=== PATIENT | female | born 1955 | race Caucasian/White ===

== ENCOUNTER 2016-07-02 10:10 | Outpatient (CLI) | payer MEDICARE | END 2016-07-02 23:59 | disposition home health service (06) | LOC: WOU 10:10 | PROVIDERS: ATTEND Podiatrist Foot & Ankle Surgery | DX: I87.332 Chronic venous hypertension (idiopathic) with ulcer and inflammation of left lower extremity (principal); L97.821 Non-pressure chronic ulcer of other part of left lower leg limited to breakdown of skin; S81.832S Puncture wound without foreign body, left lower leg, sequela; W26.8XXS Contact with other sharp object(s), not elsewhere classified, sequela; M79.7 Fibromyalgia; I25.2 Old myocardial infarction; I10 Essential (primary) hypertension; B36.9 Superficial mycosis, unspecified; E66.9 Obesity, unspecified; Z68.41 Body mass index [BMI] 40.0-44.9, adult; G89.29 Other chronic pain | CPT/HCPCS: 15271; A6402; G0463; Q4131; A6207 ==

== ENCOUNTER 2016-07-09 09:03 | Outpatient (CLI) | payer MEDICARE | END 2016-07-09 23:59 | disposition home or self-care (01) | LOC: WOU 09:03 | PROVIDERS: ATTEND Podiatrist Foot & Ankle Surgery | DX: I83.228 Varicose veins of left lower extremity with both ulcer of other part of lower extremity and inflammation (principal); M79.7 Fibromyalgia; E66.9 Obesity, unspecified; Z68.41 Body mass index [BMI] 40.0-44.9, adult; L97.821 Non-pressure chronic ulcer of other part of left lower leg limited to breakdown of skin; Z87.828 Personal history of other (healed) physical injury and trauma; I83.893 Varicose veins of bilateral lower extremities with other complications; I25.2 Old myocardial infarction; L29.9 Pruritus, unspecified; L20.9 Atopic dermatitis, unspecified; B36.9 Superficial mycosis, unspecified; G89.29 Other chronic pain; I10 Essential (primary) hypertension | CPT/HCPCS: 15271; A6402; G0463 ==

== ENCOUNTER 2016-07-16 14:05 | Outpatient (CLI) | payer MEDICARE | END 2016-07-16 23:59 | disposition home or self-care (01) | LOC: WOU 14:05 | PROVIDERS: ATTEND Podiatrist Foot & Ankle Surgery | DX: I87.332 Chronic venous hypertension (idiopathic) with ulcer and inflammation of left lower extremity (principal); L97.821 Non-pressure chronic ulcer of other part of left lower leg limited to breakdown of skin; E66.9 Obesity, unspecified; Z68.41 Body mass index [BMI] 40.0-44.9, adult; M79.7 Fibromyalgia; L30.4 Erythema intertrigo; L20.9 Atopic dermatitis, unspecified | CPT/HCPCS: 15271; A6402; Q4131 ==

== ENCOUNTER 2016-07-23 08:15 | Outpatient (CLI) | payer MEDICARE | END 2016-07-23 23:59 | disposition home or self-care (01) | LOC: WOU 08:15 | PROVIDERS: ATTEND Podiatrist Foot & Ankle Surgery | DX: I83.228 Varicose veins of left lower extremity with both ulcer of other part of lower extremity and inflammation (principal); L97.821 Non-pressure chronic ulcer of other part of left lower leg limited to breakdown of skin; E66.9 Obesity, unspecified; Z68.41 Body mass index [BMI] 40.0-44.9, adult; M79.7 Fibromyalgia; L29.9 Pruritus, unspecified; L30.4 Erythema intertrigo; L20.9 Atopic dermatitis, unspecified | CPT/HCPCS: 15271; A6402 ==

== ENCOUNTER 2016-07-30 10:03 | Outpatient (CLI) | payer MEDICARE | END 2016-07-30 23:59 | disposition home or self-care (01) | LOC: WOU 10:03 | PROVIDERS: ATTEND Podiatrist Foot & Ankle Surgery | DX: I83.228 Varicose veins of left lower extremity with both ulcer of other part of lower extremity and inflammation (principal); L97.821 Non-pressure chronic ulcer of other part of left lower leg limited to breakdown of skin; I83.893 Varicose veins of bilateral lower extremities with other complications; Z87.828 Personal history of other (healed) physical injury and trauma; I25.2 Old myocardial infarction; I10 Essential (primary) hypertension; M79.7 Fibromyalgia; E32.9 Disease of thymus, unspecified; Z79.899 Other long term (current) drug therapy; Z83.3 Family history of diabetes mellitus; Z82.49 Family history of ischemic heart disease and other diseases of the circulatory system | CPT/HCPCS: A6402; G0463 ==

== ENCOUNTER 2016-08-06 10:00 | Outpatient (CLI) | payer MEDICARE | END 2016-08-06 23:59 | disposition home or self-care (01) | LOC: WOU 10:00 | PROVIDERS: ATTEND Podiatrist Foot & Ankle Surgery | DX: I83.228 Varicose veins of left lower extremity with both ulcer of other part of lower extremity and inflammation (principal); L97.829 Non-pressure chronic ulcer of other part of left lower leg with unspecified severity; E66.9 Obesity, unspecified; Z68.41 Body mass index [BMI] 40.0-44.9, adult; I25.2 Old myocardial infarction; M79.7 Fibromyalgia; Z83.3 Family history of diabetes mellitus; Z82.49 Family history of ischemic heart disease and other diseases of the circulatory system; I83.893 Varicose veins of bilateral lower extremities with other complications | CPT/HCPCS: A6402; G0463 ==

== ENCOUNTER 2016-09-07 09:08 | Outpatient (CLI) | payer MEDICARE | END 2016-09-07 23:59 | disposition home or self-care (01) | LOC: WOU 09:08 | PROVIDERS: ATTEND Podiatrist Foot & Ankle Surgery | DX: I83.893 Varicose veins of bilateral lower extremities with other complications (principal); I10 Essential (primary) hypertension; M79.7 Fibromyalgia; I25.2 Old myocardial infarction; L20.9 Atopic dermatitis, unspecified; L30.4 Erythema intertrigo; L29.9 Pruritus, unspecified; E66.9 Obesity, unspecified; Z68.41 Body mass index [BMI] 40.0-44.9, adult; I83.819 Varicose veins of unspecified lower extremity with pain | CPT/HCPCS: G0463 ==

== ENCOUNTER 2016-10-05 11:55 | Outpatient (CLI) | payer MEDICARE | END 2016-10-05 23:59 | disposition home or self-care (01) | LOC: WOU 11:55 | PROVIDERS: ATTEND Surgery | DX: S61.452A Open bite of left hand, initial encounter (principal); W55.01XA Bitten by cat, initial encounter; Y92.89 Other specified places as the place of occurrence of the external cause; I25.2 Old myocardial infarction; I10 Essential (primary) hypertension; M79.7 Fibromyalgia; E07.9 Disorder of thyroid, unspecified; I25.10 Atherosclerotic heart disease of native coronary artery without angina pectoris; F32.9 Major depressive disorder, single episode, unspecified | CPT/HCPCS: A6207; A6402; G0463 ==

== ENCOUNTER 2016-10-12 12:10 | Outpatient (CLI) | payer MEDICARE | END 2016-10-12 23:59 | disposition home or self-care (01) | LOC: WOU 12:10 | PROVIDERS: ATTEND Surgery | DX: S61.452D Open bite of left hand, subsequent encounter (principal); W55.01XD Bitten by cat, subsequent encounter; I25.2 Old myocardial infarction; I10 Essential (primary) hypertension; M79.7 Fibromyalgia; E07.9 Disorder of thyroid, unspecified; I25.10 Atherosclerotic heart disease of native coronary artery without angina pectoris; F32.9 Major depressive disorder, single episode, unspecified | CPT/HCPCS: G0463 ==

== ENCOUNTER 2016-10-26 10:53 | Outpatient (CLI) | payer MEDICARE | END 2016-10-26 23:55 | disposition home or self-care (01) | LOC: WOU 10:53 | PROVIDERS: ATTEND Surgery | DX: S61.452D Open bite of left hand, subsequent encounter (principal); W55.01XD Bitten by cat, subsequent encounter; M79.7 Fibromyalgia; E07.9 Disorder of thyroid, unspecified; F32.9 Major depressive disorder, single episode, unspecified; I25.2 Old myocardial infarction; I25.10 Atherosclerotic heart disease of native coronary artery without angina pectoris; I10 Essential (primary) hypertension | CPT/HCPCS: G0463 ==

== ENCOUNTER 2017-01-25 11:15 | Outpatient (CLI) | payer MEDICARE | END 2017-01-25 23:59 | disposition home or self-care (01) | LOC: WOU 11:15 | PROVIDERS: ATTEND Surgery | DX: S61.452D Open bite of left hand, subsequent encounter (principal); L30.4 Erythema intertrigo; W55.01XD Bitten by cat, subsequent encounter; M79.7 Fibromyalgia; E07.9 Disorder of thyroid, unspecified; F32.9 Major depressive disorder, single episode, unspecified; I25.2 Old myocardial infarction; I25.10 Atherosclerotic heart disease of native coronary artery without angina pectoris; I10 Essential (primary) hypertension; M25.642 Stiffness of left hand, not elsewhere classified | CPT/HCPCS: G0463 ==

== ENCOUNTER 2017-03-11 12:00 | Outpatient (CLI) | payer MEDICARE | END 2017-03-11 23:59 | disposition home or self-care (01) | LOC: WOU 12:00 | PROVIDERS: ATTEND Surgery | DX: S61.452D Open bite of left hand, subsequent encounter (principal); L30.4 Erythema intertrigo; W55.01XD Bitten by cat, subsequent encounter; M79.7 Fibromyalgia; E07.9 Disorder of thyroid, unspecified; F32.9 Major depressive disorder, single episode, unspecified; I25.2 Old myocardial infarction; I25.10 Atherosclerotic heart disease of native coronary artery without angina pectoris; I10 Essential (primary) hypertension; M25.642 Stiffness of left hand, not elsewhere classified | CPT/HCPCS: G0463 ==

== ENCOUNTER 2017-04-09 09:50 | Outpatient (CLI) | payer MEDICARE | END 2017-04-09 23:59 | disposition home or self-care (01) | LOC: WOU 09:50 | PROVIDERS: ATTEND Podiatrist Foot & Ankle Surgery | DX: S80.811A Abrasion, right lower leg, initial encounter (principal); L03.115 Cellulitis of right lower limb; W20.8XXA Other cause of strike by thrown, projected or falling object, initial encounter; Y92.89 Other specified places as the place of occurrence of the external cause; E66.9 Obesity, unspecified; Z68.41 Body mass index [BMI] 40.0-44.9, adult; Z71.3 Dietary counseling and surveillance | CPT/HCPCS: A6402; G0463 ==

== ENCOUNTER 2017-04-15 11:55 | Outpatient (CLI) | payer MEDICARE | END 2017-04-15 23:59 | disposition home or self-care (01) | LOC: WOU 11:55 | PROVIDERS: ATTEND Podiatrist Foot & Ankle Surgery | DX: L03.116 Cellulitis of left lower limb (principal); L03.115 Cellulitis of right lower limb; S80.811D Abrasion, right lower leg, subsequent encounter; W18.09XD Striking against other object with subsequent fall, subsequent encounter; E66.9 Obesity, unspecified; Z68.41 Body mass index [BMI] 40.0-44.9, adult; I25.2 Old myocardial infarction | CPT/HCPCS: A6402; G0463 ==

== ENCOUNTER 2017-04-19 11:34 | Outpatient (CLI) | payer MEDICARE | END 2017-04-19 23:59 | disposition home or self-care (01) | LOC: WOU 11:34 | PROVIDERS: ATTEND Podiatrist Foot & Ankle Surgery | DX: S80.811A Abrasion, right lower leg, initial encounter (principal); W18.09XA Striking against other object with subsequent fall, initial encounter; L03.116 Cellulitis of left lower limb; L03.115 Cellulitis of right lower limb; E66.9 Obesity, unspecified; Z68.41 Body mass index [BMI] 40.0-44.9, adult; I25.2 Old myocardial infarction; M79.661 Pain in right lower leg | CPT/HCPCS: 11042; A6402 ==

== ENCOUNTER 2017-04-22 12:55 | Outpatient (CLI) | payer MEDICARE | END 2017-04-22 23:59 | disposition home or self-care (01) | LOC: WOU 12:55 | PROVIDERS: ATTEND Surgery | DX: S61.052D Open bite of left thumb without damage to nail, subsequent encounter (principal); W55.01XD Bitten by cat, subsequent encounter; M79.7 Fibromyalgia; F32.9 Major depressive disorder, single episode, unspecified; E07.9 Disorder of thyroid, unspecified; I25.10 Atherosclerotic heart disease of native coronary artery without angina pectoris; I11.9 Hypertensive heart disease without heart failure | CPT/HCPCS: G0463 ==

== ENCOUNTER 2017-04-26 10:55 | Outpatient (CLI) | payer MEDICARE | END 2017-04-26 23:59 | disposition home or self-care (01) | LOC: WOU 10:55 | PROVIDERS: ATTEND Podiatrist Foot & Ankle Surgery | DX: S80.811A Abrasion, right lower leg, initial encounter (principal); M79.7 Fibromyalgia; W18.09XA Striking against other object with subsequent fall, initial encounter; E66.9 Obesity, unspecified; Z68.41 Body mass index [BMI] 40.0-44.9, adult; I25.2 Old myocardial infarction; M79.661 Pain in right lower leg; I96 Gangrene, not elsewhere classified | CPT/HCPCS: 11042; A6402 ==

== ENCOUNTER 2017-05-06 12:42 | Outpatient (CLI) | payer MEDICARE | END 2017-05-06 23:59 | disposition home or self-care (01) | LOC: WOU 12:42 | PROVIDERS: ATTEND Surgery | DX: L30.4 Erythema intertrigo (principal); E66.9 Obesity, unspecified; Z68.41 Body mass index [BMI] 40.0-44.9, adult; S80.811D Abrasion, right lower leg, subsequent encounter; W01.118D Fall on same level from slipping, tripping and stumbling with subsequent striking against other sharp object, subsequent encounter | CPT/HCPCS: G0463 ==

== ENCOUNTER 2018-06-30 13:10 | Outpatient (CLI) | payer MEDICARE | END 2018-06-30 23:59 | disposition home or self-care (01) | LOC: WOU 13:10 | PROVIDERS: ATTEND Podiatrist Foot & Ankle Surgery | DX: S81.812A Laceration without foreign body, left lower leg, initial encounter (principal); L03.116 Cellulitis of left lower limb; W22.8XXA Striking against or struck by other objects, initial encounter; Y92.89 Other specified places as the place of occurrence of the external cause; M79.7 Fibromyalgia; I25.2 Old myocardial infarction; M79.662 Pain in left lower leg; I10 Essential (primary) hypertension; Z79.899 Other long term (current) drug therapy | CPT/HCPCS: 11042; A6402 ==

== ENCOUNTER 2018-07-07 10:17 | Outpatient (CLI) | payer MEDICARE | END 2018-07-07 23:59 | disposition home or self-care (01) | LOC: WOU 10:17 | PROVIDERS: ATTEND Podiatrist Foot & Ankle Surgery | DX: S81.812A Laceration without foreign body, left lower leg, initial encounter (principal); W22.03XA Walked into furniture, initial encounter; Y92.89 Other specified places as the place of occurrence of the external cause; L03.116 Cellulitis of left lower limb; M79.662 Pain in left lower leg; M79.7 Fibromyalgia; I10 Essential (primary) hypertension; I25.2 Old myocardial infarction; E07.9 Disorder of thyroid, unspecified; Z79.899 Other long term (current) drug therapy | CPT/HCPCS: 11042; Z7610 ==

== ENCOUNTER 2018-07-14 10:48 | Outpatient (CLI) | payer MEDICARE | END 2018-07-14 23:59 | disposition home or self-care (01) | LOC: WOU 10:48 | PROVIDERS: ATTEND Podiatrist Foot & Ankle Surgery | DX: S81.812A Laceration without foreign body, left lower leg, initial encounter (principal); W22.8XXA Striking against or struck by other objects, initial encounter; Y92.89 Other specified places as the place of occurrence of the external cause; M79.7 Fibromyalgia; I10 Essential (primary) hypertension; I25.2 Old myocardial infarction; Z79.899 Other long term (current) drug therapy; E07.9 Disorder of thyroid, unspecified; M79.662 Pain in left lower leg | CPT/HCPCS: 11042; A6402 ==

== ENCOUNTER 2018-07-21 10:52 | Outpatient (CLI) | payer MEDICARE | END 2018-07-21 23:59 | disposition home or self-care (01) | LOC: WOU 10:52 | PROVIDERS: ATTEND Podiatrist Foot & Ankle Surgery | DX: S81.812A Laceration without foreign body, left lower leg, initial encounter (principal); W22.8XXA Striking against or struck by other objects, initial encounter; Y92.89 Other specified places as the place of occurrence of the external cause; M79.7 Fibromyalgia; I10 Essential (primary) hypertension; I25.2 Old myocardial infarction; E07.9 Disorder of thyroid, unspecified; Z91.041 Radiographic dye allergy status; Z79.899 Other long term (current) drug therapy | CPT/HCPCS: 11042; A6402 ==

== ENCOUNTER 2018-08-04 11:06 | Outpatient (CLI) | payer MEDICARE | END 2018-08-04 23:59 | disposition home or self-care (01) | LOC: WOU 11:06 | PROVIDERS: ATTEND Podiatrist Foot & Ankle Surgery | DX: S81.812A Laceration without foreign body, left lower leg, initial encounter (principal); W22.8XXA Striking against or struck by other objects, initial encounter; Y92.89 Other specified places as the place of occurrence of the external cause; M79.662 Pain in left lower leg; M79.7 Fibromyalgia; I25.2 Old myocardial infarction; I10 Essential (primary) hypertension; Z79.899 Other long term (current) drug therapy | CPT/HCPCS: 11042; A6402 ==

== ENCOUNTER 2018-08-18 10:50 | Outpatient (CLI) | payer MEDICARE | END 2018-08-18 23:59 | disposition home or self-care (01) | LOC: WOU 10:50 | PROVIDERS: ATTEND Podiatrist Foot & Ankle Surgery | DX: S81.812D Laceration without foreign body, left lower leg, subsequent encounter (principal); W22.8XXD Striking against or struck by other objects, subsequent encounter; M79.7 Fibromyalgia; I10 Essential (primary) hypertension; I25.2 Old myocardial infarction; M79.662 Pain in left lower leg; Z79.899 Other long term (current) drug therapy; E07.9 Disorder of thyroid, unspecified | CPT/HCPCS: G0463 ==

== ENCOUNTER 2018-09-08 13:53 | Outpatient (CLI) | payer MEDICARE | END 2018-09-08 23:59 | disposition home or self-care (01) | LOC: WOU 13:53 | PROVIDERS: ATTEND Podiatrist Foot & Ankle Surgery | PROC: 0HQLXZZ Repair Left Lower Leg Skin, External Approach (ICD-10-PCS; principal; 2018-09-08) | DX: S81.812A Laceration without foreign body, left lower leg, initial encounter (principal); W22.03XA Walked into furniture, initial encounter; Y93.89 Activity, other specified; Y92.019 Unspecified place in single-family (private) house as the place of occurrence of the external cause; M79.7 Fibromyalgia; I25.2 Old myocardial infarction; I10 Essential (primary) hypertension; E07.9 Disorder of thyroid, unspecified | CPT/HCPCS: 12001; A6402; J3490 ==

== ENCOUNTER 2018-09-15 13:18 | Outpatient (CLI) | payer MEDICARE | END 2018-09-15 23:59 | disposition home or self-care (01) | LOC: WOU 13:18 | PROVIDERS: ATTEND Podiatrist Foot & Ankle Surgery | DX: S81.812D Laceration without foreign body, left lower leg, subsequent encounter (principal); W22.03XD Walked into furniture, subsequent encounter; M79.7 Fibromyalgia; I25.2 Old myocardial infarction; E07.9 Disorder of thyroid, unspecified | CPT/HCPCS: A6402; G0463 ==

== ENCOUNTER 2018-09-22 11:00 | Outpatient (CLI) | payer MEDICARE | END 2018-09-22 23:59 | disposition home or self-care (01) | LOC: WOU 11:00 | PROVIDERS: ATTEND Podiatrist Foot & Ankle Surgery | DX: S81.812D Laceration without foreign body, left lower leg, subsequent encounter (principal); W22.03XD Walked into furniture, subsequent encounter; M79.7 Fibromyalgia; I25.2 Old myocardial infarction; I10 Essential (primary) hypertension | CPT/HCPCS: G0463 ==

== ENCOUNTER 2019-02-20 10:00 | Outpatient (CLI) | payer MEDICARE | END 2019-02-20 23:59 | disposition home or self-care (01) | LOC: WOU 10:00 | PROVIDERS: ATTEND Podiatrist Foot & Ankle Surgery | DX: S81.811D Laceration without foreign body, right lower leg, subsequent encounter (principal); W22.8XXD Striking against or struck by other objects, subsequent encounter; M79.7 Fibromyalgia; M79.661 Pain in right lower leg | CPT/HCPCS: G0463 ==

== ENCOUNTER 2019-03-02 12:00 | Outpatient (CLI) | payer MEDICARE | END 2019-03-02 23:59 | disposition home or self-care (01) | LOC: WOU 12:00 | PROVIDERS: ATTEND Podiatrist Foot & Ankle Surgery | DX: S81.811D Laceration without foreign body, right lower leg, subsequent encounter (principal); W22.8XXD Striking against or struck by other objects, subsequent encounter; M79.7 Fibromyalgia; M79.661 Pain in right lower leg; I10 Essential (primary) hypertension; E07.9 Disorder of thyroid, unspecified | CPT/HCPCS: G0463 ==

== ENCOUNTER 2019-03-09 12:30 | Outpatient (CLI) | payer MEDICARE | END 2019-03-09 23:59 | disposition home or self-care (01) | LOC: WOU 12:30 | PROVIDERS: ATTEND Podiatrist Foot & Ankle Surgery | DX: S81.811A Laceration without foreign body, right lower leg, initial encounter (principal); W22.8XXA Striking against or struck by other objects, initial encounter; Y92.89 Other specified places as the place of occurrence of the external cause; M79.7 Fibromyalgia; I10 Essential (primary) hypertension; I25.2 Old myocardial infarction; Z79.899 Other long term (current) drug therapy; Z91.041 Radiographic dye allergy status | CPT/HCPCS: 11043 ==

== ENCOUNTER 2019-03-16 10:35 | Outpatient (CLI) | payer MEDICARE | END 2019-03-16 23:59 | disposition home or self-care (01) | LOC: WOU 10:35 | PROVIDERS: ATTEND Podiatrist Foot & Ankle Surgery | DX: S81.811A Laceration without foreign body, right lower leg, initial encounter (principal); W22.8XXA Striking against or struck by other objects, initial encounter; Y99.8 Other external cause status; M79.7 Fibromyalgia; M79.661 Pain in right lower leg; I10 Essential (primary) hypertension; I25.2 Old myocardial infarction; E07.9 Disorder of thyroid, unspecified; Z79.890 Hormone replacement therapy | CPT/HCPCS: 11042; 11043 ==